=== PATIENT | male | born 1940 | race Caucasian/White ===

== ENCOUNTER → 2016-11-19 | Outpatient (CLI) | payer MEDICARE | LOC: LAB 12:15 | PROVIDERS: Internal Medicine Nephrology | DX: N18.3 Chronic kidney disease, stage 3 (moderate) (principal) | CPT/HCPCS: 36415; 80053; 82043; 82570; 84550 ==

== ENCOUNTER → 2016-12-06 | Outpatient (CLI) | payer MEDICARE | LOC: RAD 08:54 | DX: R13.14 Dysphagia, pharyngoesophageal phase (principal); K44.9 Diaphragmatic hernia without obstruction or gangrene; K21.9 Gastro-esophageal reflux disease without esophagitis; K22.4 Dyskinesia of esophagus | CPT/HCPCS: 74220 ==

== ENCOUNTER 2020-08-30 21:31 | Emergency (ER) | payer MEDICARE ==
[~2020-08-30 21:31] MED LIST: ALLOPURINOL100 MG PO; ASPIR-LOW81 MG PO; CILOSTAZOL50 MG PO; COLACE CLEAR50 MG PO; COZAAR 25MG TAB25 MG PO; FLOMAX 0.4 MG0.4 MG PO; IMDUR ER TAB 6060 MG PO; LOPRESSOR 25 MG25 MG PO; MOBIC7.5 MG PO; NORVASC5 MG PO; OMEPRAZOLE20 MG PO; PRAVACHOL40 MG PO; PROSCAR5 MG PO; RANEXA500 MG PO; REFRESH CLASSI1 EACH EYEBOTH; SENNA S TABLET1 EACH PO; SPIRIVA RESPIMAT4 GM INH; VITAMIN D PO; XALATAN2.5 ML EYEBOTH; XALATAN2.5 ML OP; ZESTRIL2.5 MG PO
[2020-08-30 22:22] LABS: RED BLOOD COUNT 3.17 M/UL (4.20-5.50); WHITE BLOOD COUNT 4.4 K/UL (4.5-11.0)
[2020-08-30 22:39] LABS: BUN/CREATININE RATIO 17 (0-10)
== END 2020-08-31 02:40 | disposition home or self-care (01) ==
LOC: ER1 21:31
PROVIDERS: Family Medicine
DX: R07.9 Chest pain, unspecified (principal); I25.10 Atherosclerotic heart disease of native coronary artery without angina pectoris; E11.9 Type 2 diabetes mellitus without complications; Z79.4 Long term (current) use of insulin; Z88.8 Allergy status to other drugs, medicaments and biological substances; Z87.19 Personal history of other diseases of the digestive system
CPT/HCPCS: 71045; 80053; 82550; 82553; 83874; 84484; 85025; 93005; 99285

== ENCOUNTER → 2020-09-02 | Outpatient (CLI) | payer MEDICARE ==
[2020-09-05 05:10] LABS: CREATININE, URINE 210.8 mg/dL (Not Estab.)
== END ==
LOC: LAB 14:17
PROVIDERS: Internal Medicine Nephrology
DX: N25.81 Secondary hyperparathyroidism of renal origin (principal); N18.30 Chronic kidney disease, stage 3 unspecified
CPT/HCPCS: 36415; 80048; 82043; 82570; 83970; 84100

== ENCOUNTER 2020-09-14 03:19 | Emergency (ER) | payer MEDICARE ==
[2020-09-14 03:55] LABS: HEMOGLOBIN 11.5 gm/dl (14.0-17.5); RED BLOOD COUNT 3.69 M/UL (4.20-5.50)
[2020-09-14 04:16] LABS: BUN/CREATININE RATIO 19 (0-10)
== END 2020-09-14 06:00 | disposition home or self-care (01) ==
LOC: ER1 03:19
PROVIDERS: Family Medicine
DX: M54.2 Cervicalgia (principal); R51.9 Headache, unspecified; G20 Parkinson's disease; M25.519 Pain in unspecified shoulder
CPT/HCPCS: 70450; 71045; 72125; 80053; 82550; 82553; 83874; 84484; 85025; 93005; 99284

== ENCOUNTER → 2020-09-18 | Outpatient (CLI) | payer MEDICARE ==
[2020-09-18 11:43] LABS: HEMOGLOBIN 11.6 gm/dl (14.0-17.5); RED BLOOD COUNT 3.73 M/UL (4.20-5.50); WHITE BLOOD COUNT 7.3 K/UL (4.5-11.0)
== END ==
LOC: LAB 10:32
PROVIDERS: Internal Medicine Nephrology
DX: Z13.29 Encounter for screening for other suspected endocrine disorder (principal); N18.9 Chronic kidney disease, unspecified; G93.41 Metabolic encephalopathy; D63.1 Anemia in chronic kidney disease
CPT/HCPCS: 36415; 80053; 82728; 83540; 83550; 85027

== ENCOUNTER → 2020-11-30 | Outpatient (CLI) | payer MEDICARE ==
[2020-12-02 08:14] LABS: CREATININE, URINE 379.5 mg/dL (Not Estab.)
== END ==
LOC: LAB 15:52
PROVIDERS: Internal Medicine Nephrology
DX: N18.30 Chronic kidney disease, stage 3 unspecified (principal)
CPT/HCPCS: 36415; 80053; 82043; 82570

== ENCOUNTER 2021-05-19 13:18 | Emergency (ER) | payer MEDICARE ==
[2021-05-19 13:51] LABS: HEMOGLOBIN 12.9 gm/dl (14.0-17.5); RED BLOOD COUNT 4.11 M/UL (4.20-5.50); WHITE BLOOD COUNT 14.8 K/UL (4.5-11.0)
[2021-05-19 14:13] LABS: BUN/CREATININE RATIO 22 (0-10)
== END 2021-05-19 18:00 | disposition home or self-care (01) ==
LOC: ER1 13:18
PROVIDERS: Family Medicine
DX: R55 Syncope and collapse (principal); E86.0 Dehydration; R11.2 Nausea with vomiting, unspecified; F03.90 Unspecified dementia, unspecified severity, without behavioral disturbance, psychotic disturbance, mood disturbance, and anxiety; Z95.1 Presence of aortocoronary bypass graft; N18.9 Chronic kidney disease, unspecified; I48.91 Unspecified atrial fibrillation; Z20.822 Contact with and (suspected) exposure to COVID-19
CPT/HCPCS: 36600; 71045; 80053; 81001; 82550; 82553; 82803; 83605; 83735; 83874; 83880; 84439; 84443; 84484; 85025; 87040; 93005; 99285; J7030; U0002

== ENCOUNTER 2021-06-10 00:25 | Emergency (ER) | payer MEDICARE ==
[2021-06-10 01:25] LABS: HEMOGLOBIN 11.2 gm/dl (14.0-17.5); RED BLOOD COUNT 3.61 M/UL (4.20-5.50); WHITE BLOOD COUNT 6.1 K/UL (4.5-11.0)
[2021-06-10] MEDS ORDERED: FLORASTOR250 MG PO (02:57)
== END 2021-06-10 03:04 | disposition home or self-care (01) ==
LOC: ER1 00:25
PROVIDERS: Emergency Medicine
DX: R19.7 Diarrhea, unspecified (principal); R41.0 Disorientation, unspecified; Z20.822 Contact with and (suspected) exposure to COVID-19; I25.10 Atherosclerotic heart disease of native coronary artery without angina pectoris; E11.22 Type 2 diabetes mellitus with diabetic chronic kidney disease; N18.9 Chronic kidney disease, unspecified; Z95.1 Presence of aortocoronary bypass graft
CPT/HCPCS: 70450; 80053; 82550; 82553; 83874; 84439; 84443; 84484; 85025; 93005; 99285; U0002

== ENCOUNTER 2021-10-13 20:26 | Emergency (ER) | payer MEDICARE ==
[~2021-10-13 20:26] MED LIST changes: +FLORASTOR250 MG PO; -PRAVACHOL40 MG PO; +PRAVASTATIN SOD40 MG PO; -VITAMIN D PO; +VITAMIN D350 MCG PO; -XALATAN2.5 ML EYEBOTH; +XALATAN2.5 ML OU
[2021-10-13 21:41] LABS: HEMOGLOBIN 10.8 gm/dl (14.0-17.5); RED BLOOD COUNT 3.62 M/UL (4.20-5.50)
[2021-10-14] MEDS ORDERED: FLOMAX 0.4 MG0.4 MG PO (16:26)
[2021-10-14] MEDS ORDERED: ARICEPT10 MG PO (16:27)
[2021-10-14] MEDS ORDERED: BUSPIRONE HCL5 MG PO (16:27)
== END 2021-10-13 23:08 | disposition home or self-care (01) ==
LOC: ER1 20:26
PROVIDERS: Nurse Practitioner
DX: U07.1 COVID-19 (principal); F03.90 Unspecified dementia, unspecified severity, without behavioral disturbance, psychotic disturbance, mood disturbance, and anxiety; I11.9 Hypertensive heart disease without heart failure; E11.9 Type 2 diabetes mellitus without complications; Z88.5 Allergy status to narcotic agent; Z95.5 Presence of coronary angioplasty implant and graft
CPT/HCPCS: 0240U; 36600; 51701; 70450; 71045; 80053; 81001; 82550; 82553; 82803; 83605; 83874; 84484; 85025; 93005; 99285

== ENCOUNTER 2021-10-14 13:37 | Observation (INO) | payer MEDICARE ==
[~2021-10-14] VITALS: Ht 180.3 cm; Wt 77.1 kg
[2021-10-14 14:14] LABS: HEMOGLOBIN 11.2 gm/dl (14.0-17.5); RED BLOOD COUNT 3.76 M/UL (4.20-5.50); WHITE BLOOD COUNT 5.9 K/UL (4.5-11.0)
[2021-10-14] MEDS ORDERED: FLOMAX 0.4 MG0.4 MG PO (16:26)
[2021-10-14] MEDS ORDERED: BUSPIRONE HCL5 MG PO (16:27)
[2021-10-14] MEDS ORDERED: ARICEPT10 MG PO (16:27)
[2021-10-15 03:20] LABS: HEMOGLOBIN 11.9 gm/dl (14.0-17.5); RED BLOOD COUNT 4.08 M/UL (4.20-5.50)
--- NOTE | 2021-10-15 23:58 | NUR ---
Patient has laid in the same position all night, whereas last night he was very mobile, trying to get out of the bed. Tonight the patient doesn't respond as well as he did the night before. Patient cannot follow commands, but he couldn't last night either as he has dementia. Notified Dr. [place] of change in condition and my concern for the patient. No new orders from him. Also notified Aaliyah, bathhouse keeper of change in patient condition and phone call to MD. Will increase rounding frequency and monitor neuro status Q1H. Will report new changes.
[2021-10-16 02:37] LABS: HEMOGLOBIN 11.8 gm/dl (14.0-17.5); RED BLOOD COUNT 3.95 M/UL (4.20-5.50); WHITE BLOOD COUNT 7.2 K/UL (4.5-11.0)
[2021-10-17 10:26] LABS: HEMOGLOBIN 11.9 gm/dl (14.0-17.5); RED BLOOD COUNT 4.05 M/UL (4.20-5.50); WHITE BLOOD COUNT 5.7 K/UL (4.5-11.0)
[2021-10-17] MEDS ORDERED: CARBIDOPA-LEVO1 EA14 PO (13:44)
[2021-10-17] MEDS ORDERED: HYDRALAZINE HCL25 MG PO (14:21)
--- NOTE | 2021-10-18 00:30 | NUR ---
PATIENT LEFT VIA EMS. IV REMOVED, TELE NOT ON, PATIENT STABLE WITH NORMAL VITALS.
== END 2021-10-18 00:20 ==
LOC: ER1 13:37 → CDU 15:56 → M/S 15:56
PROVIDERS: Emergency Medicine; Internal Medicine; ADMIT Internal Medicine
DX: R29.810 Facial weakness (principal); R47.81 Slurred speech; R41.82 Altered mental status, unspecified; G30.9 Alzheimer's disease, unspecified; F02.80 Dementia in other diseases classified elsewhere, unspecified severity, without behavioral disturbance, psychotic disturbance, mood disturbance, and anxiety; U07.1 COVID-19; I12.9 Hypertensive chronic kidney disease with stage 1 through stage 4 chronic kidney disease, or unspecified chronic kidney disease; E11.22 Type 2 diabetes mellitus with diabetic chronic kidney disease; N18.30 Chronic kidney disease, stage 3 unspecified; I25.10 Atherosclerotic heart disease of native coronary artery without angina pectoris; K21.9 Gastro-esophageal reflux disease without esophagitis; E78.5 Hyperlipidemia, unspecified; Z95.1 Presence of aortocoronary bypass graft; Z23 Encounter for immunization; Z66 Do not resuscitate; Z88.5 Allergy status to narcotic agent; Z91.040 Latex allergy status; Z88.8 Allergy status to other drugs, medicaments and biological substances; Z91.048 Other nonmedicinal substance allergy status; Z79.82 Long term (current) use of aspirin; Z79.899 Other long term (current) drug therapy
CPT/HCPCS: 36415; 70450; 70551; 71045; 80048; 80053; 80061; 82550; 82553; 82565; 82962; 83036; 83735; 83874; 84100; 84439; 84443; 84484; 85025; 85027; 85610; 85730; 93005; 96372; 96374; 96376; 97110; 97162; 97166; 97530-GP-CQ; 99285; C9113; G0378; J1644; J7030